=== PATIENT | female | born 1995 | race Hispanic/Latino ===

== ENCOUNTER 2022-02-23 19:52 | Inpatient (IN) | payer MEDICAID, OTHER ==
[2022-02-23] MEDS ORDERED: MINERAL OIL 30 ML ORAL LIQD PO PRN (21:54)
[2022-02-23] MEDS ORDERED: fentaNYL 100 MCG/2 ML INJ IV PRN (21:54)
[2022-02-23] MEDS ORDERED: LIDOCAINE (2%) 20 MG/1 ML VIAL 20 ML MDV INFILTRATI ONE (21:54)
[2022-02-23] MEDS ORDERED: ACETAMINOPHEN 325 MG TAB PO PRN (21:54)
[2022-02-23] MEDS ORDERED: miSOPROStol 200 MCG TAB PR PRN (21:54)
[2022-02-23] MEDS ORDERED: BUTORPHANOL 2 MG/1 ML INJ IV PRN (21:54)
[2022-02-23] MEDS ORDERED: LOPERAMIDE 2 MG CAP PO PRN (21:54)
[2022-02-23] MEDS ORDERED: ONDANSETRON 4 MG/2 ML INJ IV PRN (21:54)
[2022-02-23] MEDS ORDERED: TERBUTALINE 1 MG/1 ML INJ SUB-Q PRN (21:54)
[2022-02-23] MEDS ORDERED: ePHEDrine SULFATE 50 MG/1 ML INJ IV PRN (21:54)
[2022-02-23] MEDS ORDERED: DINOPROSTONE 10 MG VAG SUPP VG ONE (21:54)
[2022-02-23] MEDS ORDERED: CARBOPROST TROMETHAMINE 250 MCG/1 ML INJ IM PRN (21:54)
[2022-02-23] MEDS ORDERED: OXYTOCIN 10 UNIT/1 ML INJ IM PRN (21:54)
[2022-02-23] MEDS ORDERED: NALOXONE 0.4 MG/1 ML INJ IV PRN (21:54)
[2022-02-23] MEDS ORDERED: buprenorphine 2 MG TAB SUBL SL SCH (22:00)
[2022-02-23] MEDS ORDERED: OXYTOCIN DRIP 30 UNITS/500 ML BAG IV SCH ×2 (22:00)
[2022-02-23 22:41] LABS: Hematocrit 30.7 % (30.3-42.9); Hemoglobin 10.5 gm/dl (10.1-14.3); Mean Corpuscular HGB Conc 34 % (30-34); Mean Corpuscular Volume 84 fl (79-97); Platelet Count 155 K/mm3 (140-440); Red Blood Count 3.67 M/mm3 (3.65-5.03); Red Cell Distribution Width 13.4 % (13.2-15.2)
[2022-02-23 23:25] LABS: Alanine Aminotransferase 7 units/L (7-56); Uric Acid 5.1 mg/dL (3.5-7.6)
[2022-02-23] MEDS: LACTATED RINGERS 1,000 ML IV SCH (23:35)
[2022-02-24] MEDS: LACTATED RINGERS 1,000 ML IV SCH ×2 (08:28→17:51)
--- NOTE | 2022-02-24 08:49 | History and Physical Report ---
History of Present Illness Date of examination: 02/24/22 Date of admission: 02/23/22 21:54 Chief complaint: sent from [facility] clinic for delivery History of present illness: Pt is a 26 yeat old female primigravida SUSY 03/16/22 at 37w1d who presented from [facility] clinic on 02/23/22 for induction secondary to elevated blood pressures 140-150/90s. She denies headache, blurred vision, RUQ pain. She has had care at [facility] with comanagment by since 19 wks complicated by late entry to care, epilepsy, h/o opioid use on suboxone 8 mg daily, h/o trauma and suicide attempt with declination of psych referral and self-limited epistaxis. She is GBS negative. Past History Past Medical History: seizure Past Surgical History: tonsillectomy (adenoidectomy ), other (ear tubes, brain biopsy ) Social history: no significant social history - Obstetrical History Expected Date of Delivery: 03/16/22 Actual Gestation: 37 Week(s) 1 Day(s) : 1 Medications and Allergies Allergies Allergy/AdvReac Type Severity Reaction Status Date / Time No Known Allergies Allergy Unverified 06/29/14 17:43 Home Medications Medication Instructions Recorded Confirmed Last Taken Type Cyclobenzaprine [Flexeril 10 MG 10 mg PO TID PRN #20 tablet 06/29/14 Unknown Rx TAB] Active Meds: Active Medications Acetaminophen (Acetaminophen 325 Mg Tab) 650 mg PO Q4H PRN PRN Reason: Pain, Mild (1-3) Buprenorphine HCl (Buprenorphine 2 Mg Tab Subl) 8 mg SL QDAY MARS Butorphanol Tartrate (Butorphanol 2 Mg/1 Ml Inj) 1 mg IV Q2H PRN PRN Reason: Pain, Moderate(4-6) LABOR PAIN Carboprost Tromethamine (Carboprost Tromethamine 250 Mcg/1 Ml Inj) 250 mcg IM ONCE PRN PRN Reason: Uterine Bleeding Ephedrine Sulfate (Ephedrine Sulfate 50 Mg/1 Ml Inj) 10 mg IV Q2M PRN PRN Reason: Hypotension Fentanyl (Fentanyl 100 Mcg/2 Ml Inj) 100 mcg IV Q2H PRN PRN Reason: Pain,Severe (7-10) LABOR PAIN Oxytocin/Sodium Chloride (Pitocin/Ns 30 Unit/500ml) 30 units in 500 mls @ 2 mls/hr IV TITR MARS; Protocol Lactated Ringer's (Lactated Ringers) 1,000 mls @ 125 mls/hr IV DIRECT MARS Last Admin: 02/24/22 08:28 Dose: 125 mls/hr Oxytocin/Sodium Chloride (Pitocin/Ns 30 Unit/500ml) 30 units in 500 mls @ 40 mls/hr IV TITR MARS; Protocol Loperamide HCl (Loperamide 2 Mg Cap) 2 mg PO ONCE PRN PRN Reason: give with Hemabate Mineral Oil (Mineral Oil 30 Ml Oral Liqd) 30 ml PO QHS PRN PRN Reason: Constipation Misoprostol (Misoprostol 200 Mcg Tab) 800 mcg UT ONCE PRN PRN Reason: Uterine Bleeding Naloxone HCl (Naloxone 0.4 Mg/1 Ml Inj) 0.1 mg IV Q2MIN PRN PRN Reason: Res Rate </= 8 or 02 SAT < 92% Ondansetron HCl (Ondansetron 4 Mg/2 Ml Inj) 4 mg IV Q8H PRN PRN Reason: Nausea And Vomiting Oxytocin (Oxytocin 10 Unit/1 Ml Inj) 10 unit IM ONCE PRN PRN Reason: Uterine Bleeding Terbutaline Sulfate (Terbutaline 1 Mg/1 Ml Inj) 0.25 mg SUB-Q ONCE PRN PRN Reason: Hyperstimulation/Hypertonicity Review of Systems All systems: negative - Vital Signs Vital signs: Vital Signs Pulse Ox 100 02/23/22 20:41 Temp Pulse Resp BP Pulse Ox 98.1 F 53 L 16 155/89 99 02/24/22 03:30 02/24/22 08:44 02/24/22 03:30 02/24/22 08:38 02/24/22 08:44 - Physical Exam Breasts: Positive: deferred Abdomen: Positive: soft (gravid ) Uterus: Positive: enlarged (gravid ) Extremities: Positive: edema (trace) - Obstetrical FHR: auscultation normal Uterine Contraction Monitor Mode: External Cervical Dilatation: 0.5 Uterine Contraction Pattern: Irregular Uterine Tone Measurement Phase: Resting Uterine Contraction Intensity: Mild Results Result Diagrams: 02/23/22 21:30 02/23/22 21:30 Abnormal lab results 02/23/22 Range/Units 21:30 Lactate Dehydrogenase 208 H (91-180) units/L All other labs normal. Assessment and Plan A: IUP at 37w1d Gestational Hypertension Epilepsy H/o opioid use on suboxone 8mg daily Late entry to care, epilepsy, h/o opioid use on suboxone 8 mg daily GBS negative P: Admit to labor and delivery Cervical ripening with cervidil NICU consult for suboxone use Closely monitor maternal and status.
[2022-02-24] MEDS: miSOPROStol 25 MCG TAB PO PRN ×3 (14:13→22:56)
[2022-02-25] MEDS: LACTATED RINGERS 1,000 ML IV SCH (02:39)
[2022-02-25] MEDS: miSOPROStol 25 MCG TAB PO PRN (03:47)
--- NOTE | 2022-02-25 08:38 | Progress Note ---
Assessment and Plan - Patient Problems (1) induced hypertension Current Visit: Yes Status: Acute Plan to address problem: Cooks catheter placed with difficulty at 0900 Pain meds as ordered Continue to monitor maternal/ wellbeing (2) Anemia Current Visit: Yes Status: Acute Qualifiers: Anemia type: iron deficiency Plan to address problem: Asymptomatic Subjective - Subjective Date of service: 02/25/22 Principal diagnosis: IOL Interval history: IOL secondary to PIH Patient reports: movement normal, contractions, no new complaints, no loss of fluid, no vaginal bleeding Objective - Vital Signs Vital Signs: Vital Signs - 12hr 02/24/22 02/24/22 02/24/22 20:38 20:39 20:43 Temperature Pulse Rate 69 78 73 Respiratory Rate Blood Pressure 136/92 O2 Sat by Pulse 100 100 Oximetry O2 Sat by Pulse Oximetry [ Bilateral] 02/24/22 02/24/22 02/24/22 20:48 20:53 20:58 Temperature Pulse Rate 70 61 54 L Respiratory Rate Blood Pressure O2 Sat by Pulse 100 100 100 Oximetry O2 Sat by Pulse Oximetry [ Bilateral] 02/24/22 02/24/22 02/24/22 21:03 21:08 21:13 Temperature Pulse Rate 60 62 60 Respiratory Rate Blood Pressure O2 Sat by Pulse 100 100 100 Oximetry O2 Sat by Pulse Oximetry [ Bilateral] 02/24/22 02/24/22 02/24/22 21:25 21:30 21:35 Temperature Pulse Rate 94 H 99 H 89 Respiratory Rate Blood Pressure O2 Sat by Pulse 100 100 99 Oximetry O2 Sat by Pulse Oximetry [ Bilateral] 02/24/22 02/24/22 02/24/22 21:37 21:40 21:45 Temperature Pulse Rate 85 87 61 Respiratory Rate Blood Pressure 125/89 O2 Sat by Pulse 100 99 Oximetry O2 Sat by Pulse Oximetry [ Bilateral] 02/24/22 02/24/22 02/24/22 21:50 21:55 22:00 Temperature Pulse Rate 65 67 73 Respiratory Rate Blood Pressure O2 Sat by Pulse 100 99 99 Oximetry O2 Sat by Pulse Oximetry [ Bilateral] 02/24/22 02/24/22 02/24/22 22:05 22:09 22:10 Temperature Pulse Rate 71 72 71 Respiratory Rate Blood Pressure 140/87 O2 Sat by Pulse 99 98 Oximetry O2 Sat by Pulse Oximetry [ Bilateral] 02/24/22 02/24/22 02/24/22 22:15 22:20 22:25 Temperature Pulse Rate 70 65 68 Respiratory Rate Blood Pressure O2 Sat by Pulse 98 99 100 Oximetry O2 Sat by Pulse Oximetry [ Bilateral] 02/24/22 02/24/22 02/24/22 22:30 22:35 22:45 Temperature Pulse Rate 69 78 70 Respiratory Rate Blood Pressure O2 Sat by Pulse 99 98 99 Oximetry O2 Sat by Pulse Oximetry [ Bilateral] 02/24/22 02/24/22 02/24/22 22:50 22:55 23:00 Temperature Pulse Rate 71 68 69 Respiratory Rate Blood Pressure O2 Sat by Pulse 99 99 99 Oximetry O2 Sat by Pulse Oximetry [ Bilateral] 02/24/22 02/24/22 02/24/22 23:05 23:10 23:15 Temperature Pulse Rate 67 64 66 Respiratory Rate Blood Pressure O2 Sat by Pulse 100 100 99 Oximetry O2 Sat by Pulse Oximetry [ Bilateral] 02/24/22 02/24/22 02/24/22 23:20 23:25 23:30 Temperature Pulse Rate 62 68 61 Respiratory Rate Blood Pressure O2 Sat by Pulse 99 100 99 Oximetry O2 Sat by Pulse Oximetry [ Bilateral] 02/24/22 02/24/22 02/24/22 23:35 23:40 23:45 Temperature Pulse Rate 64 63 62 Respiratory Rate Blood Pressure O2 Sat by Pulse 100 100 100 Oximetry O2 Sat by Pulse Oximetry [ Bilateral] 02/24/22 02/24/22 02/25/22 23:50 23:55 00:00 Temperature Pulse Rate 59 L 77 63 Respiratory Rate Blood Pressure O2 Sat by Pulse 99 100 100 Oximetry O2 Sat by Pulse Oximetry [ Bilateral] 02/25/22 02/25/22 02/25/22 00:05 00:07 00:10 Temperature Pulse Rate 57 L 60 68 Respiratory Rate Blood Pressure 139/84 O2 Sat by Pulse 100 100 Oximetry O2 Sat by Pulse Oximetry [ Bilateral] 02/25/22 02/25/22 02/25/22 00:15 00:20 00:25 Temperature Pulse Rate 60 75 62 Respiratory Rate Blood Pressure O2 Sat by Pulse 99 99 99 Oximetry O2 Sat by Pulse Oximetry [ Bilateral] 02/25/22 02/25/22 02/25/22 00:30 00:35 00:40 Temperature Pulse Rate 53 L 55 L 67 Respiratory Rate Blood Pressure O2 Sat by Pulse 100 100 100 Oximetry O2 Sat by Pulse Oximetry [ Bilateral] 02/25/22 02/25/22 02/25/22 00:45 00:50 00:55 Temperature Pulse Rate 64 57 L 60 Respiratory Rate Blood Pressure O2 Sat by Pulse 100 99 99 Oximetry O2 Sat by Pulse Oximetry [ Bilateral] 02/25/22 02/25/22 02/25/22 01:00 01:05 01:10 Temperature Pulse Rate 51 L 56 L 60 Respiratory Rate Blood Pressure O2 Sat by Pulse 99 98 98 Oximetry O2 Sat by Pulse Oximetry [ Bilateral] 02/25/22 02/25/22 02/25/22 01:15 01:20 01:25 Temperature Pulse Rate 61 52 L 62 Respiratory Rate Blood Pressure O2 Sat by Pulse 98 98 98 Oximetry O2 Sat by Pulse Oximetry [ Bilateral] 02/25/22 02/25/22 02/25/22 01:30 01:35 01:40 Temperature Pulse Rate 65 64 62 Respiratory Rate Blood Pressure O2 Sat by Pulse 98 98 98 Oximetry O2 Sat by Pulse Oximetry [ Bilateral] 02/25/22 02/25/22 02/25/22 01:45 01:50 01:55 Temperature Pulse Rate 60 53 L 62 Respiratory Rate Blood Pressure O2 Sat by Pulse 99 99 98 Oximetry O2 Sat by Pulse Oximetry [ Bilateral] 02/25/22 02/25/22 02/25/22 02:00 02:05 02:10 Temperature Pulse Rate 61 60 59 L Respiratory Rate Blood Pressure O2 Sat by Pulse 98 98 98 Oximetry O2 Sat by Pulse Oximetry [ Bilateral] 02/25/22 02/25/22 02/25/22 02:15 02:20 02:28 Temperature Pulse Rate 60 56 L 85 Respiratory Rate Blood Pressure O2 Sat by Pulse 97 100 100 Oximetry O2 Sat by Pulse Oximetry [ Bilateral] 02/25/22 02/25/22 02/25/22 02:33 02:38 02:43 Temperature Pulse Rate 52 L 51 L 53 L Respiratory Rate Blood Pressure O2 Sat by Pulse 100 100 99 Oximetry O2 Sat by Pulse Oximetry [ Bilateral] 02/25/22 02/25/22 02/25/22 02:48 02:53 02:58 Temperature Pulse Rate 56 L 47 L 57 L Respiratory Rate Blood Pressure O2 Sat by Pulse 99 98 98 Oximetry O2 Sat by Pulse Oximetry [ Bilateral] 02/25/22 02/25/22 02/25/22 03:03 03:08 03:13 Temperature Pulse Rate 54 L 61 50 L Respiratory Rate Blood Pressure O2 Sat by Pulse 98 98 99 Oximetry O2 Sat by Pulse Oximetry [ Bilateral] 02/25/22 02/25/22 02/25/22 03:18 03:23 03:28 Temperature Pulse Rate 58 L 64 61 Respiratory Rate Blood Pressure O2 Sat by Pulse 98 98 99 Oximetry O2 Sat by Pulse Oximetry [ Bilateral] 02/25/22 02/25/22 02/25/22 03:33 03:38 03:43 Temperature Pulse Rate 51 L 58 L 64 Respiratory Rate Blood Pressure O2 Sat by Pulse 98 98 100 Oximetry O2 Sat by Pulse Oximetry [ Bilateral] 02/25/22 02/25/22 02/25/22 03:48 03:53 03:58 Temperature Pulse Rate 54 L 55 L 51 L Respiratory Rate Blood Pressure O2 Sat by Pulse 100 99 97 Oximetry O2 Sat by Pulse Oximetry [ Bilateral] 02/25/22 02/25/22 02/25/22 04:03 04:08 04:13 Temperature Pulse Rate 47 L 62 47 L Respiratory Rate Blood Pressure O2 Sat by Pulse 98 99 98 Oximetry O2 Sat by Pulse Oximetry [ Bilateral] 02/25/22 02/25/22 02/25/22 04:18 04:23 04:28 Temperature Pulse Rate 65 65 63 Respiratory Rate Blood Pressure O2 Sat by Pulse 97 98 99 Oximetry O2 Sat by Pulse Oximetry [ Bilateral] 02/25/22 02/25/22 02/25/22 04:33 04:38 04:43 Temperature Pulse Rate 46 L 47 L 59 L Respiratory Rate Blood Pressure O2 Sat by Pulse 100 98 99 Oximetry O2 Sat by Pulse Oximetry [ Bilateral] 02/25/22 02/25/22 02/25/22 04:56 05:01 05:06 Temperature Pulse Rate 94 H 69 55 L Respiratory Rate Blood Pressure O2 Sat by Pulse 100 99 100 Oximetry O2 Sat by Pulse Oximetry [ Bilateral] 02/25/22 02/25/22 02/25/22 05:11 05:16 05:21 Temperature Pulse Rate 53 L 54 L 58 L Respiratory Rate Blood Pressure O2 Sat by Pulse 100 100 99 Oximetry O2 Sat by Pulse Oximetry [ Bilateral] 02/25/22 02/25/22 02/25/22 05:26 05:31 05:36 Temperature Pulse Rate 59 L 51 L 55 L Respiratory Rate Blood Pressure O2 Sat by Pulse 100 99 99 Oximetry O2 Sat by Pulse Oximetry [ Bilateral] 02/25/22 02/25/22 02/25/22 05:41 05:46 05:51 Temperature Pulse Rate 51 L 52 L 51 L Respiratory Rate Blood Pressure O2 Sat by Pulse 100 100 99 Oximetry O2 Sat by Pulse Oximetry [ Bilateral] 02/25/22 02/25/22 02/25/22 05:56 06:01 06:06 Temperature Pulse Rate 52 L 60 55 L Respiratory Rate Blood Pressure O2 Sat by Pulse 100 100 98 Oximetry O2 Sat by Pulse Oximetry [ Bilateral] 02/25/22 02/25/22 02/25/22 06:11 06:16 06:21 Temperature Pulse Rate 64 47 L 50 L Respiratory Rate Blood Pressure O2 Sat by Pulse 100 100 100 Oximetry O2 Sat by Pulse Oximetry [ Bilateral] 02/25/22 02/25/22 02/25/22 06:26 06:38 06:43 Temperature Pulse Rate 55 L 77 69 Respiratory Rate Blood Pressure O2 Sat by Pulse 100 99 100 Oximetry O2 Sat by Pulse Oximetry [ Bilateral] 02/25/22 02/25/22 02/25/22 06:48 06:53 06:58 Temperature Pulse Rate 65 88 85 Respiratory Rate Blood Pressure O2 Sat by Pulse 100 100 99 Oximetry O2 Sat by Pulse Oximetry [ Bilateral] 02/25/22 02/25/22 02/25/22 07:03 07:08 07:13 Temperature Pulse Rate 62 64 56 L Respiratory Rate Blood Pressure 141/86 O2 Sat by Pulse 100 100 100 Oximetry O2 Sat by Pulse Oximetry [ Bilateral] 02/25/22 02/25/22 02/25/22 07:18 07:23 07:28 Temperature Pulse Rate 51 L 48 L 51 L Respiratory Rate Blood Pressure O2 Sat by Pulse 100 100 100 Oximetry O2 Sat by Pulse Oximetry [ Bilateral] 02/25/22 02/25/22 02/25/22 07:33 07:38 07:39 Temperature Pulse Rate 68 76 65 Respiratory Rate Blood Pressure 149/86 O2 Sat by Pulse 100 100 Oximetry O2 Sat by Pulse Oximetry [ Bilateral] 02/25/22 02/25/22 07:40 07:43 Temperature 97.9 F Pulse Rate 62 Respiratory 18 Rate Blood Pressure O2 Sat by Pulse 100 Oximetry O2 Sat by Pulse 100 Oximetry [ Bilateral] - Exam Breasts: deferred Cardiovascular: Regular rate Lungs: Normal air movement Abdomen: Present: other (gravid) FHR: category 1 Uterine Contraction Monitor Mode: External Cervical Dilatation: 1 (vertex) Cervical Effacement Percentage: 50 station: -3 Uterine Contraction Frequency (min): 2-4 Uterine Contraction Pattern: Irregular Uterine Tone Measurement Phase: Resting Uterine Contraction Intensity: Mild - Labs Labs: Abnormal Labs 02/23/22 21:30 Lactate Dehydrogenase 208 H
[2022-02-25] MEDS ORDERED: NALOXONE 0.4 MG/1 ML INJ IV PRN (11:02)
[2022-02-25] MEDS ORDERED: fentaNYL-BUPIV 2 MCG/ML-0.125% 200 MCG/100 ML BAG EPIDURAL SCH (11:02)
[2022-02-25] MEDS ORDERED: ePHEDrine SULFATE 50 MG/1 ML INJ IV PRN (11:02)
--- NOTE | 2022-02-25 11:04 | Anesthesia Consultation ---
Anesthesia Consult and Med Hx Date of service: 02/25/22 - Airway Anesthetic Teeth Evaluation: Good ROM Head & Neck: Adequate Mental/Hyoid Distance: Adequate Mallampati Class: Class II Intubation Access Assessment: Probably Good - Pulmonary Exam CTA: Yes - Cardiac Exam Cardiac Exam: RRR - Pre-Operative Health Status ASA Pre-Surgery Classification: ASA2 Proposed Anesthetic Plan: Epidural - Pulmonary Hx Smoking: No Hx Asthma: No Hx Respiratory Symptoms: No SOB: No COPD: No Home Oxygen Therapy: No Hx Pneumonia: No Hx Sleep Apnea: No - Cardiovascular System Hx Hypertension: No Hx Coronary Artery Disease: No Hx Heart Attack/AMI: No Hx Angina: No Hx Percutaneous Transluminal Coronary Angioplasty (PTCA): No Hx Cardia Arrhythmia: No Hx Pacemaker: No Hx Internal Defibrillator: No Hx Valvular Heart Disease: No Hx Heart Murmur: No Hx Peripheral Vascular Disease: No - Central Nervous System Hx Neuromuscular Disorder: No Hx Seizures: Yes CVA: No Hx Back Pain: No Hx Psychiatric Problems: Yes (anxiety; bipolar depression.) - Gastrointestinal Hx Ulcer: No Hx Gastroesophageal Reflux Disease: No - Endocrine Hx Renal Disease: No Hx End Stage Renal Disease: No Hx Cirrhosis: No Hx Liver Disease: No Hx Insulin Dependent Diabetes: No Hx Non-Insulin Dependent Diabetes: No Hx Thyroid Disease: No Hx Hypothyroidism: No Hx Hyperthyroidism: No - Hematic Hx Anemia: No Hx Sickle Cell Disease: No - Other Systems Hx Alcohol Use: No Hx Substance Use: No Hx Cancer: No Hx Obesity: No
--- NOTE | 2022-02-25 11:04 | Anesthesia Day of Surgery ---
Anesthesia Day of Surgery - Day of Surgery Patient Examined: Yes Patient H&P Reviewed: Yes Patient is NPO: Yes Beta Blockers: No Cardiac Clearance: No Pulmonary Clearance: No Gamaliel's Test: N/A
--- NOTE | 2022-02-25 11:10 | Progress Note ---
Labor Epidural - Labor Epidural Start Time: 10:48 Stop Time: 11:00 Performed by:: CAROLE ROACH Procedure: Epidural Requested for Labor Pain. H&P and PT Chart reviewed and consent obtained. Time out performed and the procedure was explained, all questions answered. Patient was placed in a sitting position with monitors applied. The PTs back was prepped and draped in usual sterile fashion. The Skin was localized with 3 mL of 1% lidocaine at L3-L4. A 17-gauge Touhy epidural needle was advanced to ABBY with saline at 7 cm and no blood/CSF was noted via epidural needle. Epidural catheter was advanced to 12 cm. There was negative aspiration for blood and CSF in the catheter and negative response to a test dose of 3 ml 1.5% lidocaine w/ Epi and a sterile dressing was applied Patient tolerated the procedure well and there were no immediate complications noted.
[2022-02-25] MEDS ORDERED: LIDOCAINE (2%) 20 MG/1 ML VIAL 20 ML MDV INFILTRATI ONE (15:03)
[2022-02-25] MEDS ORDERED: PROMETHAZINE 25 MG TAB PO PRN (15:28)
[2022-02-25] MEDS ORDERED: WITCH HAZEL/ GLYCERIN PAD TP PRN (15:28)
[2022-02-25] MEDS ORDERED: MAGNESIUM HYDROXIDE (MOM) ORAL LIQD UDC PO PRN (15:28)
[2022-02-25] MEDS ORDERED: LANOLIN/ZINC/DIMETHICONE (LANSINOH) 7 GM TP PRN (15:28)
[2022-02-25] MEDS ORDERED: diphenhydrAMINE 25 MG CAP PO PRN (15:28)
[2022-02-25] MEDS ORDERED: oxyCODONE /ACETAMINOPHEN 5-325MG TAB PO PRN (15:28)
--- NOTE | 2022-02-25 15:37 | Procedure Note ---
OB Delivery Note - Delivery Date of Delivery: 02/25/22 (1456) Surgeon: LISSA PEÑALOZA (CNM) Estimated blood loss: 300cc - Vaginal Delivery presentation: vertex Delivery position: OA (SUMEET) Intrapartum events: none Delivery induction: misoprostol Delivery augmentation: rupture of membranes (SROM @ 1030, clear) Delivery monitor: external FHT, external uterine Route of delivery: Delivery placenta: spontaneous (1459, gardner) Delivery cord: nuchal cord (x1, reduced at perineum) Episiotomy: midline (reparied) Delivery laceration: 2nd degree Delivery repair: vicryl (3.0-CT-1) Anesthesia: epidural Delivery comments: of viable male placed directly to maternal abdomen. Cord double clamped, cut by FOB after cessation of pulsation. Uterus firm @ U-3, hemostasis maintained. Perineum with midline episiotomy, repaired. NICU team at bedside to evaluate baby, taken to NICU. Mother safe, stable and left in care of RN. - Infant A at 1 minute: 8 at 5 minutes: 9 Gender: Male (Weight: 3060 gms (6lbs 12 ozs))
[2022-02-25] MEDS: IBUPROFEN 800 MG TAB PO SCH (23:58)
[2022-02-26] MEDS: IBUPROFEN 800 MG TAB PO SCH ×4 (06:17→22:00)
[2022-02-26 08:15] LABS: Hematocrit 30.4 % (30.3-42.9); Hemoglobin 10.4 gm/dl (10.1-14.3)
--- NOTE | 2022-02-26 08:48 | Discharge Summary ---
Providers - Providers Date of Admission: 02/23/22 21:54 Date of discharge: 02/27/22 Attending physician: ADAM HUBER 02/25/22 Consult to Case Management [CONS] Routine Services Needed at Discharge: Hot Walker Notified:: no Comment:: limited care 02/25/22 15:29 Consult to Fish Hatchery Superintendent [CONS] Routine Reason For Exam: assistance with , SNS Primary care physician: ADAM HUBER Hospitalization Reason for admission: induction of labor (secondary to getational HTN) Delivery: Episiotomy: midline (repaired, healing as expected) Other procedures: none complications: none Discharge diagnosis: IUP at term delivered [place] baby: male Hospital course: Pt is a 26 yeat old female primigravida SUSY 03/16/22 at 37w1d who presen [place] from [facility] clinic on 02/23/22 for induction secondary to elevated blood pressures 140-150/90s. She denies headache, blurred vision, RUQ pain. She has had care at [facility] with comanagment by since 19 wks complicated by late entry to care, epilepsy, h/o opioid use on suboxone 8 mg daily, h/o trauma and suicide attempt with declination of psych referral and self-limited epistaxis. She is GBS negative. Delivered viable male via . Condition at discharge: Stable Disposition: 01 HOME / SELF CARE / HOMELESS - Discharge Diagnoses (1) induced hypertension Status: Acute (2) Anemia Status: Acute Qualifiers: Anemia type: iron deficiency Comment: Asymptomatic Increase iron rich foods into diet Plan - Discharge Medications Prescriptions: Ibuprofen [Motrin 800 MG tab] 800 mg PO Q8HR #30 tablet - Provider Discharge Summary Activity: routine, no sex for 6 weeks, no heavy lifting 4 weeks, no strenuous exercise Diet: other (Iron rich diet) Instructions: routine Additional instructions: [] Smoking cessation referral if applicable(refer to patient education folder for contact #) [] Refer to [facility] Booklet Call your doctor immediately for: * Fever > 100.5 * Heavy vaginal bleeding ( >1 pad per hour) * Severe persistent headache * Shortness of breath * Reddened, hot, painful area to leg or breast * Drainage or odor from incision. * Keep episiotomy site clean and dry at all times and follow doctor's instructions regarding bathing/showering * Follow-up in office in 1 week for B/P check - Follow up plan Follow up: ADAM HUBER MD [Primary Care Provider] - 7 Days
--- NOTE | 2022-02-26 10:56 | Post Anesthesia Evaluation ---
- Post Anesthesia Evaluation Patient Participated: Yes Airway Patent: Yes Stable Respiratory Function: Yes Nausea/Vomiting: No Temp > 96.8F: Yes Pain Manageable: Yes Adequeate Hydration: Yes Anesthesia Complications: No Block Receding Appropriately: Yes Patient on Ventilator: No
[2022-02-26] MEDS: PRENATAL VIT27-FE FUMARATE-FOLIC ACID VIT TAB PO SCH (12:28)
[2022-02-26] MEDS ORDERED: buprenorphine 2 MG TAB SUBL SL SCH (16:00)
[2022-02-27] MEDS: IBUPROFEN 800 MG TAB PO SCH (04:00)
[2022-02-27] MEDS: PRENATAL VIT27-FE FUMARATE-FOLIC ACID VIT TAB PO SCH (10:00)
[2022-02-27 13:16] VITALS: BP 140/70
== END 2022-02-27 13:37 | disposition home or self-care (01) | DRG 775 ==
LOC: UNDOADMIN 19:52 → LD 19:52 → UNDOADMIN 21:54 → LD 02-25 15:27 → OB 02-25 16:44 → UNDODISIN 02-27 13:37
PROVIDERS: ADMIT Obstetrics & Gynecology; ATTEND Obstetrics & Gynecology
PROC: 10E0XZZ Delivery of Products of Conception, External Approach (ICD-10-PCS; principal; 2022-02-25)
PROC: 0KQM0ZZ Repair Perineum Muscle, Open Approach (ICD-10-PCS; 2022-02-25)
PROC: 3E0R3BZ Introduction of Anesthetic Agent into Spinal Canal, Percutaneous Approach (ICD-10-PCS; 2022-02-25)
PROC: 00HU33Z Insertion of Infusion Device into Spinal Canal, Percutaneous Approach (ICD-10-PCS; 2022-02-25)
PROC: 3E0P7VZ Introduction of Hormone into Female Reproductive, Via Natural or Artificial Opening (ICD-10-PCS; 2022-02-25)
PROC: 0W8NXZZ Division of Female Perineum, External Approach (ICD-10-PCS; 2022-02-25)
DX: O13.4 Gestational [pregnancy-induced] hypertension without significant proteinuria, complicating childbirth (principal); Z37.0 Single live birth; Z3A.37 37 weeks gestation of pregnancy; O99.354 Diseases of the nervous system complicating childbirth; O70.1 Second degree perineal laceration during delivery; O34.83 Maternal care for other abnormalities of pelvic organs, third trimester; Z20.822 Contact with and (suspected) exposure to COVID-19; G40.909 Epilepsy, unspecified, not intractable, without status epilepticus; O99.02 Anemia complicating childbirth; D50.9 Iron deficiency anemia, unspecified; O99.344 Other mental disorders complicating childbirth; F41.9 Anxiety disorder, unspecified; F31.9 Bipolar disorder, unspecified; O69.81X0 Labor and delivery complicated by cord around neck, without compression, not applicable or unspecified; F11.10 Opioid abuse, uncomplicated
CPT/HCPCS: 36415; 59200; 82565; 83615; 84450; 84460; 84550; 85014; 85018; 85027; 86592; 86850; 86900; 86901; 96360; 96365; 96367; 96374; G0378; J3490; J3010; J7120; U0003

== ENCOUNTER 2022-04-07 09:06 | Day surgery (SDC) | payer MEDICAID ==
[~2022-04-07 09:06] MED LIST: ACETAMINOPHEN 500 MG TAB PO SCH; LACTATED RINGERS 1,000 ML IV SCH; MIDAZOLAM 2 MG/2 ML INJ IV NR; SCOPOLAMINE TRANSDERMAL PATCH 72 HR TD NR
--- NOTE | 2022-04-07 09:37 | Anesthesia Consultation ---
Anesthesia Consult and Med Hx Date of service: 04/07/22 - Airway Anesthetic Teeth Evaluation: Good, Chipped (broken #29) ROM Head & Neck: Adequate Mental/Hyoid Distance: Adequate Mallampati Class: Class I Intubation Access Assessment: Good - Pre-Operative Health Status ASA Pre-Surgery Classification: ASA3 Proposed Anesthetic Plan: General - Pulmonary Hx Smoking: No Hx Respiratory Symptoms: No - Cardiovascular System Hx Hypertension: No (gestational HTN; resolved, off meds x3-4wks) - Central Nervous System Hx Seizures: Yes (last seizure 5yrs ago; no longer on meds) - Endocrine Hx Renal Disease: No Hx Liver Disease: No Hx Insulin Dependent Diabetes: No Hx Non-Insulin Dependent Diabetes: No Hx Thyroid Disease: No - Other Systems Hx Substance Use: Yes (hx opioid use disorder; took suboxone this morning) - Additional Comments Anesthesia Medical History Comments: No hx anesthetic complications.
--- NOTE | 2022-04-07 09:41 | Anesthesia Day of Surgery ---
Anesthesia Day of Surgery - Day of Surgery Patient Examined: Yes Patient H&P Reviewed: Yes Patient is NPO: Yes
[2022-04-07] MEDS ORDERED: GABAPENTIN 300 MG CAP PO NR (10:00)
[2022-04-07] MEDS ORDERED: CELECOXIB 200 MG CAP PO NR (10:00)
[2022-04-07] MEDS ORDERED: propofoL 200 MG/20 ML VIAL IV ONE (12:08)
[2022-04-07] MEDS ORDERED: fentaNYL 100 MCG/2 ML INJ ONE ×2 (12:08→13:11)
[2022-04-07] MEDS ORDERED: LIDOCAINE PF 100 MG/5 ML (CARDIAC SYRINGE) IV ONE (12:12)
[2022-04-07] MEDS ORDERED: LIDOCAINE (1%) 10 MG/1 ML VIAL 20 ML MDV ONE (12:20)
[2022-04-07] MEDS ORDERED: BUPIVACAINE/PF (0.5%) 5 MG/1 ML 30 ML VIAL INFILTRATI ONE ×2 (12:20→13:16)
[2022-04-07] MEDS ORDERED: DIBUCAINE 1% OINT 28 GM ONE (12:21)
[2022-04-07] MEDS ORDERED: ONDANSETRON 4 MG/2 ML INJ ONE (13:15)
[2022-04-07] MEDS ORDERED: dexAMETHasone 20 MG/5 ML VIAL ONE (13:15)
[2022-04-07] MEDS ORDERED: LIDOCAINE (1%) 10 MG/1 ML VIAL 20 ML MDV INFILTRATI ONE (13:16)
[2022-04-07] MEDS ORDERED: LACTATED RINGERS 1,000 ML ONE (13:16)
[2022-04-07] MEDS ORDERED: SODIUM CHLORIDE 0.9% IRR 1,500 ML BOTTLE IR ONE (13:22)
[2022-04-07] MEDS ORDERED: oxyCODONE /ACETAMINOPHEN 5-325MG TAB PO PRN (13:31)
[2022-04-07] MEDS ORDERED: HYDROmorphone 0.5 MG/0.5 ML INJ IV PRN (13:31)
[2022-04-07] MEDS ORDERED: NEOSTIGMINE 10MG/10 ML INJ MDV ONE (13:49)
[2022-04-07] MEDS ORDERED: GLYCOPYRROLATE 0.4 MG/2 ML INJ ONE (13:49)
[2022-04-07] MEDS ORDERED: DIBUCAINE 1% OINT 28 GM PR ONE (13:57)
--- NOTE | 2022-04-07 13:59 | Short Stay Summary ---
Short Stay Documentation Date of service: 04/07/22 - History Principal diagnosis: GRADE 3 hemorrhoids H&P: obtained from office - Allergies and Medications Current Medications: Allergies No Known Allergies Allergy (Verified 04/06/22 12:25) Home Medications Medication Instructions Recorded Confirmed Last Taken Type Amoxicillin [Trimox] 250 mg PO Q8HR 04/01/22 04/01/22 04/06/22 History Buprenorphine HCl/Naloxone HCl 8 mg SL QDAY 04/01/22 04/07/22 04/07/22 08:15 History [Suboxone 8 mg-2 mg SL Film] Ibuprofen [Motrin 800 MG tab] 800 mg PO PRN PRN 04/01/22 04/01/22 04/06/22 History Lactulose [Kristalose] 20 gm PO PRN PRN 04/01/22 04/07/22 04/03/22 History Active Medications Acetaminophen (Acetaminophen 500 Mg Tab) 1,000 mg PO PREOP MARS Stop: 04/07/22 23:59 Last Admin: 04/07/22 10:32 Dose: 1,000 mg Celecoxib (Celecoxib 200 Mg Cap) 200 mg PO PREOP NR Stop: 04/07/22 18:00 Last Admin: 04/07/22 10:32 Dose: 200 mg Gabapentin (Gabapentin 300 Mg Cap) 300 mg PO PREOP NR Stop: 04/07/22 18:00 Last Admin: 04/07/22 10:32 Dose: 300 mg Hydromorphone HCl (Hydromorphone 0.5 Mg/0.5 Ml Inj) 0.5 mg IV Q10MIN PRN PRN Reason: Pain , Severe (7-10) Stop: 04/08/22 13:30 Lactated Ringer's (Lactated Ringers) 1,000 mls @ 100 mls/hr IV DIRECT MARS Stop: 04/07/22 23:59 Last Admin: 04/07/22 10:19 Dose: 100 mls/hr Midazolam HCl (Midazolam 2 Mg/2 Ml Inj) 2 mg IV PREOP NR Stop: 04/07/22 23:59 Last Admin: 04/07/22 10:43 Dose: 2 mg Oxycodone/Acetaminophen (Oxycodone /Acetaminophen 5-325mg Tab) 1 tab PO ONCE PRN PRN Reason: Pain, Moderate (4-6) Scopolamine (Scopolamine Transdermal Patch 72 Hr) 1 each TD PREOP NR Stop: 04/07/22 23:59 Last Admin: 04/07/22 10:28 Dose: 1 each - Brief post op/procedure progress note Date of procedure: 04/07/22 Pre-op diagnosis: grade 3 hemorrhoids Post-op diagnosis: same Procedure: transanal hemorrhoidal dearterialization Anesthesia: GETA, local Findings: Prolapsing internal hemorrhoids circumfrentially with induration of mucosa and small anal fissure in the right anterior position Surgeon: MERLIN LEHMAN [employer]: [employer] Estimated blood loss: minimal Pathology: none Condition: stable - Hospital course Hospital course: Patient observed in PACU and discharged home in stable condition when criteria met - Disposition Condition at discharge: Good Disposition: 01 HOME / SELF CARE / HOMELESS Short Stay Discharge Plan Activity: other (No heavy lifting, straining) Diet: other (Low fiber diet. Start with clear liquids for the next 3 to 4 days and then advance to a soft low fiber diet.) Wound: open to air Additional Instructions: Please see printed discharge instructions Follow up with: PRIMARY CAREMD [Primary Care Provider] - 7 Days MERLIN LEHMAN DO [Staff Physician] - 14 Days Prescriptions: Ketorolac [Toradol] 10 mg PO Q6H PRN #30 PRN Reason: Pain
--- NOTE | 2022-04-07 16:09 | Post Anesthesia Evaluation ---
- Post Anesthesia Evaluation Patient Participated: Yes Airway Patent: Yes Stable Respiratory Function: Yes Nausea/Vomiting: No Temp > 96.8F: Yes Pain Manageable: Yes Adequeate Hydration: Yes Anesthesia Complications: No
[2022-04-07 16:48] VITALS: BP 114/69
--- NOTE | 2022-04-08 12:22 | Operative Report ---
Operative Report Operative Report: Date of procedure: 04/07/22 Pre-op diagnosis: grade 3 hemorrhoids Post-op diagnosis: same Procedure: transanal hemorrhoidal dearterialization Anesthesia: GETA, local Findings: Prolapsing internal hemorrhoids circumfrentially with induration of mucosa and small anal fissure in the right anterior position Surgeon: MERLIN LEHMAN Care Mgr: DIOM[employer] BLANC Estimated blood loss: minimal Pathology: none Condition: stable Hospital course: Patient observed in PACU and discharged home in stable condition when criteria met Condition at discharge: Good Disposition: 01 HOME / SELF CARE / HOMELESS HPI and indication: Patient is a 26-year-old female who presented to the surgery clinic for evaluation of rectal pain, worsening hemorrhoids. The patient recently gave 1 month prior and was having severe constipation since delivery. She was started on lactulose by her [employer] but noted worsening prolapse of her internal hemorrhoids. Patient was having mild bleeding and pain. On exam she was found to have prolapsing internal hemorrhoids. It was recommended that she undergo transanal dearterialization of the hemorrhoids as well as rectal exam under anesthesia. All risks, benefits, alternatives to surgery were discussed and questions answered. Consent was obtained. Procedure in detail: The patient was identified in the preoperative area and taken to the operating. Anesthesia was induced on the patient's stretcher and she was then placed in prone jackknife position on the operating room table. The rectal area was prepped and draped in the usual sterile fashion. Timeout was performed. A rectal exam was performed which revealed indurated rectal muscosa with grade 4 prolapse of internal hemorrhoids. There was also a small fissure of the right anterior location. The Doppler anoscope was then used to identify hemorrhoidal arteries at 1, 3, 5, 7, 9, and 11:00 positions. 2-0 Vicryl was used to perform the dearterialization in each of these positions. Hemorrhoidal pexy was performed circumferentially. After this, there appeared to be 30% reduction in swelling. An intersphincteric nerve block was then performed with half percent Marcaine and 1% lidocaine. Gelfoam gauze coated in the Dibucaine was inserted into the rectum. Hemostasis was ensured. A rolled up fluff gauze was placed over the anus and covered with a ABD pad, secured with tape and mesh underwear. At the end of the case all sponge, instrument, sharp counts were correct x2. Patient was awoken from anesthesia, transferred to the stretcher, extubated and taken to PACU in stable condition.
== END 2022-04-07 16:20 | disposition home or self-care (01) ==
LOC: OR 09:06
PROVIDERS: ATTEND Surgery
DX: K64.2 Third degree hemorrhoids (principal); D64.9 Anemia, unspecified; G40.909 Epilepsy, unspecified, not intractable, without status epilepticus; K21.9 Gastro-esophageal reflux disease without esophagitis; F31.9 Bipolar disorder, unspecified; F41.9 Anxiety disorder, unspecified; Z79.899 Other long term (current) drug therapy; Z98.890 Other specified postprocedural states; Z82.49 Family history of ischemic heart disease and other diseases of the circulatory system
CPT/HCPCS: 46948; 81025; J1100; J1815; J2001; J2250; J2405; J2704; J2710; J3010; J3490; J7120